=== PATIENT | male | born 1985 | race Caucasian/White ===

== ENCOUNTER → 2016-04-12 | Outpatient (CLI) | payer BC, OTHER ==
[~2016-04-12] MED LIST: CETI10TA20 PO; CLIN-62 PO; METH-336 PO; METO-333 PO; Metoprolol PO; OMEP20CA12 PO; ONDA8TAB13 PO; TRAM-42 PO; TRAM50TA2 PO; zyrtec PO
--- NOTE | 2016-04-12 11:28 | Diagnostic Imaging Report ---
Three views of the left knee. INDICATION: Left knee pain. FINDINGS: There is no fracture, dislocation or radiopaque foreign body. There is fullness in the suprapatellar pouch suggestive of a moderate effusion. No significant arthritic changes except for minimal early osteophyte formation at the patellofemoral joint seen. IMPRESSION: Moderate suprapatellar effusion. Dictated by: Dictated on workstation # [id number]
== END ==
LOC: RAD 10:26
PROVIDERS: ATTEND Nurse Practitioner Family
DX: M25.562 Pain in left knee (principal)
CPT/HCPCS: 73562

== ENCOUNTER → 2016-04-19 | Outpatient (CLI) | payer BC, OTHER ==
--- NOTE | 2016-04-19 16:36 | Diagnostic Imaging Report ---
PROCEDURE: MRI left joint lower extremity without contrast. TECHNIQUE: A multiplanar/multisequence noncontrast enhanced MRI of the left lower extremity was accomplished. INDICATION: Fall with hyperextension of the left leg on 04/09/2016. There is medial and anterior left knee pain and instability since. FINDINGS: There is a bone marrow contusion involving the lateral femoral condyle. There is a moderate suprapatellar effusion seen. The extensor mechanism appears intact. Mild anterior signal within the subcutaneous tissues anterior to the lower aspect of the patella is probably scarring from prior injury. There is lack of visualization of the normal ACL fibers with suggestion of some flattened fibers along the tibial plateau, compatible with a full-thickness ACL tear. The PCL demonstrates a high-grade near full-thickness tear without retraction of its fibers as well. There is a tear in the posterior horn of the lateral meniscus with an 8 mm gap seen. The body and anterior horn appear intact. There is a horizontal tear involving the posterior root of the medial meniscus. A slightly blunted appearance of the medial meniscus is seen with no tear noted in the anterior horn. A radial tear in the body of the medial meniscus is not excluded. There is a full-thickness tear in the proximal fibers of the medial collateral ligament with a 3 mm gap. The lateral collateral ligament complex appears intact. There is no popliteal cyst. The joint cartilage appears preserved. IMPRESSION: 1. Full-thickness tear of the ACL. 2. Near full-thickness tear of the PCL. 3. Medial and lateral meniscus tears as described. 4. Full-thickness proximal MCL tear with minimal retraction of the fibers . Report faxed to [facility], at 4:40 p.m. 04/19/2016/essence Dictated by: Dictated on workstation # [id number]
== END ==
LOC: RAD 15:10
PROVIDERS: ATTEND Nurse Practitioner
DX: M23.52 Chronic instability of knee, left knee (principal)
CPT/HCPCS: 73721

== ENCOUNTER 2016-07-01 13:00 | Outpatient (RCR) | payer BC, OTHER ==
--- OUTSIDE RECORDS SUMMARY | 2016-06-01 10:27 | XMS REPORT | Continuity of Care Document ---
Demographics Preferred Language Unknown Marital Status Unknown Yazidism Affiliation Unknown Race Unknown Ethnic Group Unknown Author Author [facility] Address Unknown Phone Unavailable Allergies Active Description Code Type Severity Reaction Onset Reported/Identified Relationship to Patient Clinical Status Yes No Known Drug Allergies [id number] Drug Allergy Unknown N/ A 09/16/2013 Yes ciprofloxacin [id number] Drug Allergy Unknown NAUSEA 02/10/2015 Medications Problems Date Dx Coded Attending Type Code Diagnosis Diagnosed By 08/11/2009 461.9 ACUTE SINUSITIS, UNSPECIFIED 11/30/2009 455.6 HEMORRHOIDS NOS 05/25/2012 566 ABSCESS OF ANAL AND RECTAL REGIONS 09/16/2013 CHESTER DANG Ot 681.00 CELLULITIS, FINGER NOS 09/17/2013 CHE[place] DANG Ot 681.00 CELLULITIS, FINGER NOS 02/13/2015 CORWIN SHARMA, KATHLEEN Shirley Ot K61.1 RECTAL ABSCESS 02/25/2015 CORWIN SHARMA, KATHLEEN Shirley Ot K60.2 02/25/2015 CORWIN SHARMA, KATHLEEN Shirley Ot Z01.810 02/25/2015 CORWIN SHARMA, KATHLEEN Shirley Ot Z11.2 04/12/2016 CORWIN SHARMA, KATHLEEN Shirley Ot K60.2 ANAL FISSURE, UNSPECIFIED 04/12/2016 CORWIN SHARMA, KATHLEEN Shirley Ot Z01.810 ENCOUNTER FOR PREPROCEDURAL CARDIOVASCUL 04/12/2016 CORWIN SHARMA, KATHLEEN Shirley Ot Z11.2 ENCOUNTER FOR SCREENING FOR OTHER BACTER 04/13/2016 MELANIE MOBLEY APRN Ot M25.562 PAIN IN LEFT KNEE 04/19/2016 CORWIN SHARMA, KATHLEEN Shirley Ot K60.2 ANAL FISSURE, UNSPECIFIED 04/19/2016 CORWIN SHARMA, KATHLEEN Shirley Ot Z01.810 ENCOUNTER FOR PREPROCEDURAL CARDIOVASCUL 04/19/2016 CORWIN SHARMA, KATHLEEN Shirley Ot Z11.2 ENCOUNTER FOR SCREENING FOR OTHER BACTER 04/19/2016 MELANIE MOBLEY BASKET WEAVER Ot M25.562 PAIN IN LEFT KNEE 04/20/2016 KHLOE LUCIA Ot M23.52 CHRONIC INSTABILITY OF KNEE, LEFT KNEE 04/20/2016 KHLOE LUCIA Ot M23.52 CHRONIC INSTABILITY OF KNEE, LEFT KNEE 05/04/2016 MELANIE MOBLEY APRN Ot M25.562 PAIN IN LEFT KNEE 05/04/2016 KHLOE LUCIA Ot M23.52 CHRONIC INSTABILITY OF KNEE, LEFT KNEE Procedures Results Encounters ACCT No. Visit Date/Time Discharge Status Pt. Type Provider Facility Loc./Unit Complaint [id number] 05/25/2012 13:33:00 05/25/2012 23: 59:59 CLS Outpatient
== END 2016-07-01 13:39 | disposition home or self-care (01) ==
DX: S83.232A Complex tear of medial meniscus, current injury, left knee, initial encounter (principal); S83.272A Complex tear of lateral meniscus, current injury, left knee, initial encounter; S83.32XA Tear of articular cartilage of left knee, current, initial encounter; X58.XXXA Exposure to other specified factors, initial encounter; Y99.8 Other external cause status